=== PATIENT | male | born 1990 | race Two or more races ===

== ENCOUNTER 2016-11-24 15:22 | Emergency (ER) | payer MEDICAID ==
[~2016-11-24] VITALS: Ht 170.2 cm; Wt 59.0 kg
[2016-11-24 15:32] VITALS: BP 134/88
== END 2016-11-24 19:12 | disposition home or self-care (01) ==
LOC: ER 15:26
DX: R31.9 Hematuria, unspecified (principal); N48.9 Disorder of penis, unspecified